=== PATIENT | female | born 1940 | race Caucasian/White ===

== ENCOUNTER 2016-09-03 10:41 | Inpatient (IN) | payer MEDICARE, OTHER ==
[2016-09-03] VITALS (21 sets, daily range): BP systolic 105–130; BP diastolic 54–63; PULSE 58–68; RESP 11–34; TEMP 97.5–97.7; O2SAT 90–99; Ht 165.1 cm; Wt 73.8 kg
[~2016-09-03] VITALS: Ht 165.1 cm; Wt 73.8 kg
[~2016-09-03 10:41] MED LIST changes: -AMLO10TA2 PO; -BENA40TA3 PO; -CARV3.12 PO; -CETI-269 PO; -POTA-81 PO; -SALINE FLUSH 10ml SYRINGE ONE; -SIMV40TA5 PO
--- NOTE | 2016-09-03 10:50 | NUR ---
Admit Pt admitted from nuclear medicine via WC accompanied by . Pt oriented to unit. Pt was able to change self into gown. Pt on RA. IVL in LW, another one started in right wrist. Orders noted and carried out. Will continue to monitor.
[2016-09-03] MEDS ORDERED: LIDOCAINE 1% (10mg/ml) 30ml SDV ONE (11:07)
[2016-09-03] MEDS ORDERED: HEPARIN 1,000units in NS 500ml BAG IV ONE (11:07)
[2016-09-03] MEDS ORDERED: BENA40TA3 PO (11:08)
[2016-09-03] MEDS ORDERED: SIMV40TA5 PO (11:08)
[2016-09-03] MEDS ORDERED: AMLO10TA2 PO (11:08)
[2016-09-03] MEDS ORDERED: POTA-81 PO (11:08)
[2016-09-03] MEDS ORDERED: NORMAL SALINE 1,000 ML IV SCH ×3 (11:30→17:00)
[2016-09-03 11:33] LABS: BASOPHILS % (AUTO) 0.3 % (0-2); EOSINOPHILS # (AUTO) 0.5 T/MM3 (0-0.5); EOSINOPHILS % (AUTO) 5.8 % (0-4); HCT - HEMATOCRIT 38.1 % (36-46); IMMATURE GRANULOCYTE # (AUTO) 0.03 T/MM3 (0.00-0.03); IMMATURE GRANULOCYTE % (AUTO) 0.3 % (0.0-0.5); LYMPHOCYTES # (AUTO) 1.4 T/MM3 (1-4.8); LYMPHOCYTES % (AUTO) 15.4 % (23-45); MEAN CORPUSCULAR HGB 30.4 UUG (26-34); MEAN CORPUSCULAR HGB CONC(MCHC 34.1 GM/DL (31-37); MEAN PLATELET VOLUME 10.8 UM3 (9.4-12.4); MONOCYTES # (AUTO) 0.9 T/MM3 (0-0.8); MONOCYTES % (AUTO) 9.5 % (0-9.0); NEUTROPHILS #(AUTO)-ABSOLUTE 6.2 T/MM3 (1.8-7.7); NEUTROPHILS % (AUTO) 68.7 % (33-66); RED BLOOD COUNT 4.28 M/MM3 (4.00-5.20)
[2016-09-03] MEDS ORDERED: MIDAZOLAM 2mg/2ml INJECTION ONE (11:39)
[2016-09-03] MEDS ORDERED: FENTANYL 100mcg/2ml INJECTION ONE (11:39)
[2016-09-03] MEDS ORDERED: VERAPAMIL 5mg/2ml INJECTION IV ONE (11:39)
--- NOTE | 2016-09-03 11:39 | NUR ---
Left to director of cath lab
[2016-09-03] MEDS ORDERED: NITROGLYCERIN 50mg/10ml INJECTION IV ONE (11:40)
[2016-09-03] MEDS ORDERED: SALINE FLUSH 10ml SYRINGE ONE (11:40)
[2016-09-03 11:42] LABS: ALBUMIN/GLOBULIN RATIO 1.3 RATIO (1.1-2.2); ALKALINE PHOSPHATASE 63 U/L (38-126); ALT (SGPT) 33 U/L (9-52); ANION GAP 8 MEQ/L (5-15); AST (SGOT) 30 U/L (14-36); BUN/CREATININE RATIO 18 RATIO (6-26); CHLORIDE 107 MEQ/L (98-107); CO2 - CARBON DIOXIDE 27 MEQ/L (22-30); CREATININE 1.6 MG/DL (0.7-1.2); GLOMERULAR FILTRATION RATE 31; GLUCOSE 102 MG/DL (65-110); POTASSIUM 4.3 MEQ/L (3.6-5); SODIUM 142 MEQ/L (134-144)
--- NOTE | 2016-09-03 12:00 | NUR ---
Notified physician of increased troponin
[2016-09-03] MEDS ORDERED: EPTIFIBATIDE 20 MG/10 ML IV ONE (13:11)
[2016-09-03] MEDS ORDERED: EPTIFIBATIDE 75 MG/100 ML IV ONE (13:11)
[2016-09-03] MEDS ORDERED: HEPARIN 20,000 units/D5W 500ml 500 ML IV SCH (14:00)
[2016-09-03] MEDS: EPTIFIBATIDE IV SCH (15:15)
[2016-09-03] MEDS: RTU SALINE IV SCH (15:15)
[2016-09-03] MEDS ORDERED: EPTIFIBATIDE IV SCH (16:02)
[2016-09-03] MEDS ORDERED: RTU SALINE IV SCH (16:02)
[2016-09-03] MEDS ORDERED: BISACODYL 5 MG E.C. TABLET PO PRN (16:15)
[2016-09-03] MEDS ORDERED: MORPHINE SULFATE 2 MG SYRINGE IV PRN (16:15)
[2016-09-03] MEDS ORDERED: NITROGLYCERIN 0.4 MG SUBLINGUAL TABLET SL SCH (16:15)
[2016-09-03] MEDS ORDERED: MORPHINE SULFATE 4 MG SYRINGE IV PRN ×3 (16:15)
[2016-09-03] MEDS ORDERED: NITROGLYCERIN 0.4 MG SUBLINGUAL TABLET SL PRN (16:15)
[2016-09-03] MEDS ORDERED: HYDROCODONE/APAP 5 mg/325 mg TABLET PO PRN (16:15)
[2016-09-03] MEDS ORDERED: PROMETHAZINE 25 MG INJECTION IV PRN (16:15)
[2016-09-03] MEDS ORDERED: METOCLOPRAMIDE 10mg/2ml INJECTION IV PRN (16:15)
[2016-09-03] MEDS ORDERED: LORAZEPAM 0.5 MG TABLET PO PRN (16:15)
[2016-09-03] MEDS ORDERED: ACETAMINOPHEN 325 MG TABLET PO PRN (16:15)
[2016-09-03] MEDS ORDERED: PRN ORDERS MC (16:15)
[2016-09-03] MEDS ORDERED: MILK OF MAGNESIA 30 ML SUSP PO PRN (16:15)
[2016-09-03] MEDS ORDERED: LORAZEPAM 2 MG/ML INJECTION IV PRN ×2 (16:15)
[2016-09-03] MEDS ORDERED: MAG-AL + SIM LIQUID 30 ML UDC PO PRN (16:15)
[2016-09-03] MEDS ORDERED: BISACODYL 10 MG SUPPOSITORY RECTALLY PRN ×2 (16:15)
[2016-09-03] MEDS ORDERED: ATROPINE 1 MG/ML VIAL IV PRN (16:15)
[2016-09-03] MEDS ORDERED: ONDANSETRON 4mg/2ml INJECTION IV PRN ×2 (16:15)
--- NOTE | 2016-09-03 16:58 | DI ---
Indication: ITS.REASON: nstemi PROCEDURE: CHEST 1 VIEW: Encounter: Initial Comparison: February 15, 2016 Findings: The lungs are stable in appearance without new focal airspace consolidation. There is no pleural effusion or pneumothorax. The heart size, pulmonary vascularity and mediastinal contours are unchanged. Prior CABG. IMPRESSION: Stable appearance of the chest without acute cardiopulmonary disease. .
--- NOTE | 2016-09-03 17:22 | NUR ---
Status Pt returned from cardiac cath tech at 1445 via bed. Pt hooked back up to monitor. VSS. Pt denied CP or any pain. trans-radial band in place on left wrist. Site asymptomatic. Integrelin infusing at 6mls/hr. NS at 125 mls/hr, and heparin at 25 mls/hr. All are compatible with each other. Pt on bedrest. Urban inserted using sterile technique. Mckayla area cleansed first with Castile soap wipes. Air is being taken out of tr band Q15M. Pt tolerating well. Will continue to monitor.
--- NOTE | 2016-09-03 17:29 | HPF ---
CHIEF COMPLAINT Abnormal stress test. HISTORY OF PRESENT ILLNESS Ms. Golden is a very pleasant 75-year-old female well known to me with coronary artery disease and prior revascularization as noted below. She was seen in our office on August 15 with intermittent chest tightness, on and off, with exertion lasting for about two to five minutes in duration. Described as 5/10 and heaviness across the chest similar to her previous angina. She has had occasional left arm pain but denies associated diaphoresis, nausea or dizziness. She has had shortness of breath and some lightheadedness at times. Patient denies any recent severe chest pain. Patient underwent stress nuclear scan today on the treadmill . Exercised for 3 minutes 30 seconds and developed 4/10 chest tightness associated with inferior ST elevation. This was transient and both angina and ST elevation spontaneously recovered as we were getting ready to take her to the emergency room. She remained angina-free, observed in recovery. I advised her on admission at this time to CCU and plan for heart catheterization. She is in full agreement with the plan. She remained free from any further angina after adequate recovery so we are going to image her in Nuclear. TEN-SYSTEM REVIEW Denies any fever, chills or night sweats. Denies any weight loss or gain. Denies sinus drainage or nosebleed. Denies sore throat. Denies wheezing, phlegm production or dyspnea. Denies palpitations or syncope. Denies abdominal pain, hematochezia, melena, dyspepsia, nausea or vomiting. Denies dysuria or hematuria. Denies lower extremity edema, orthopnea or PND. Denies syncope, headache or seizure. She did have a skin rash that she attributed to metoprolol and the drug was discontinued. She has no other complaints. PAST MEDICAL HISTORY/PAST SURGICAL HISTORY 1. Coronary artery disease, status post CABG x 2. BONDS to LAD and SVG to RCA [address] Kentrell Vicente. Normal LV function. 2. Angioplasty and 2.25 x 8 mm Integrity drug-eluting stent anastomosis of the SVG to RCA and distal RCA - Dr. Gil February 2016 while I was out. 3. Hypertension. 4. Dyslipidemia. 5. Renal insufficiency. 6. Osteoarthritis. 7. Tonsillectomy. 8. Hysterectomy. 9. Tubal ligation. 10. Breast biopsy. HOME MEDICATIONS Reviewed in EMR. ALLERGIES/DRUG INTOLERANCE Metoprolol caused rash. FAMILY HISTORY Positive for coronary artery disease, [place] and diabetes. SOCIAL HISTORY Former smoker. . Does not smoke cigarettes or drink alcohol at the present time. PHYSICAL EXAM GENERAL: Alert and oriented x 3, pleasant. Looks in no acute cardiorespiratory distress. VITAL SIGNS: Stable. Afebrile. HEENT: Normocephalic, atraumatic. PSYCHIATRIC: Mood and affect are normal. NECK: Jugular venous pressure is normal. Carotid upstrokes are equal without bruits. No palpable thyromegaly. CHEST: Perfectly clear to auscultation bilaterally. HEART: Regular rate and rhythm. Positive S4. No murmurs, rubs or clicks. Normal S1, S2. ABDOMEN: Soft, nontender, nondistended. Normoactive bowel sounds. No organomegaly or masses. EXTREMITIES: Lower extremities are without pitting edema. Peripheral pulses are intact. NEUROLOGIC: Without focal sensorimotor deficits appreciated. SKIN: Warm, pink and dry. LYMPHATIC: No palpable lymphadenopathy. No palpable thyromegaly. DIAGNOSTIC DATA Reviewed. Troponin came back elevated at 0.4. EKG normalized on the monitor. She is in sinus rhythm. Chemistry came back with elevated creatinine at 1.6. Previous creatinine was 1.1 from February 2016. TSH was normal. CBC unremarkable. Lipid profile: Cholesterol 119, LDL 57, VLDL 23.8, HDL 38. IMPRESSION 1. Abnormal stress nuclear scan. 2. Acute NSTEMI. 3. Coronary artery disease, status post CABG x 2. Prior angioplasty and stent to the distal SVG/RCA anastomosis February 2016. 4. Hypertension. 5. Dyslipidemia. 6. Renal insufficiency. DISCUSSION/PLAN 1. Proceed with urgent heart catheterization, possible PTCA and stent. Indications, alternatives, risks and benefits of the procedure were fully discussed with the patient in detail. She is in agreement to proceed. 2. IV hydration, saline bolus and drip started. 3. Holding her Melvin inhibitor, diuretics and potassium due to elevated creatinine and exposure to contrast. 4. Follow serial troponins and EKGs. 5. Echocardiogram. 6. Admit inpatient status. 7. Resume other home medications. ADDENDUM (d. 09/03/16 0729, t. 09/03/16 1753 mks) Due to elevated creatinine and NSTEMI expected length of stay is greater than two midnights. Inpatient status is warranted. [facility]
--- NOTE | 2016-09-03 17:31 | NUR ---
Order clarification Physician was paged for order clarification: Pt to be inpt May have supper tonight-cardiac diet and NPO at 0001 Nitro to be PRN only, not scheduled Changed NS to 100 mls/hr not 125 mls/hr No need to call elevated troponin. Treat pt symptoms instead of basing off troponin. Several telemetry, continuous oximetry, measure intake and outputs cancelled for duplicate orders.
[2016-09-03] MEDS: NORMAL SALINE 1,000 ML IV SCH (18:09)
[2016-09-03] MEDS: CARVEDILOL 3.125 MG TABLET PO SCH (18:09)
--- NOTE | 2016-09-03 22:00 | NUR ---
HEPARIN CONSULT (Initial): Dx: Pt has hx of CABG x 2, now presenting with NSTEMI. Post CATH, started on Heparin Drip (No Bolus) at 1000 units/hr. Baseline PTT = NA Baseline platelet count = 207 T/mm3. PTT Target Range = 50 - 75 seconds Heparin 20,000 units in D5W 500ml. PTT at 8hrs of infusion = 105.9 seconds. Will HOLD Heparin drip x 1 hour, then restart at 840 units/hr (21ml/hr). Recheck PTT in am. We will continue to monitor and make adjustments accordingly. Thank you.
[2016-09-03] MEDS: ASPIRIN *EC* 81mg TABLET PO SCH (22:10)
[2016-09-03] MEDS: TICAGRELOR 90 MG TABLET PO SCH (22:10)
[2016-09-03] MEDS: ATORVASTATIN 40 MG TABLET PO SCH (22:10)
--- NOTE | 2016-09-03 22:12 | NUR ---
Pharmacy Consult Talked with pharmacist product manufacturing professional on Heparin and other anticoags, orders received and initiated.
[2016-09-03] MEDS: HEPARIN 20,000 units/D5W 500ml 500 ML IV SCH (23:00)
[2016-09-04] VITALS (42 sets, daily range): BP systolic 111–155; BP diastolic 54–90; PULSE 56–69; RESP 8–44; TEMP 97.8–98.1; O2SAT 90–99
[2016-09-04] MEDS: RTU SALINE IV SCH (04:26)
[2016-09-04] MEDS: EPTIFIBATIDE IV SCH (04:26)
[2016-09-04] MEDS: NORMAL SALINE 1,000 ML IV SCH ×3 (04:45→23:15)
[2016-09-04 05:13] LABS: BASOPHILS % (AUTO) 0.2 % (0-2); EOSINOPHILS # (AUTO) 0.5 T/MM3 (0-0.5); HCT - HEMATOCRIT 36.6 % (36-46); HGB - HEMOGLOBIN 12.5 GM/DL (12-16); IMMATURE GRANULOCYTE # (AUTO) 0.02 T/MM3 (0.00-0.03); IMMATURE GRANULOCYTE % (AUTO) 0.2 % (0.0-0.5); LYMPHOCYTES # (AUTO) 1.3 T/MM3 (1-4.8); LYMPHOCYTES % (AUTO) 13.3 % (23-45); MEAN CORPUSCULAR HGB 30.5 UUG (26-34); MEAN CORPUSCULAR HGB CONC(MCHC 34.2 GM/DL (31-37); MEAN CORPUSCULAR VOLUME 89.3 UM3 (80-100); MEAN PLATELET VOLUME 11.1 UM3 (9.4-12.4); MONOCYTES # (AUTO) 0.8 T/MM3 (0-0.8); MONOCYTES % (AUTO) 8.1 % (0-9.0); NEUTROPHILS #(AUTO)-ABSOLUTE 7.2 T/MM3 (1.8-7.7); NEUTROPHILS % (AUTO) 73.2 % (33-66); WBC - WHITE BLOOD COUNT 9.9 T/MM3 (4.5-11.0)
[2016-09-04 05:31] LABS: ANION GAP 7 MEQ/L (5-15); BUN/CREATININE RATIO 17 RATIO (6-26); CALCIUM 8.9 MG/DL (8.4-10.2); CHLORIDE 109 MEQ/L (98-107); CO2 - CARBON DIOXIDE 23 MEQ/L (22-30); CREATININE 1.3 MG/DL (0.7-1.2); GLOMERULAR FILTRATION RATE 40; GLUCOSE 105 MG/DL (65-110); POTASSIUM 4.1 MEQ/L (3.6-5); SODIUM 139 MEQ/L (134-144)
--- NOTE | 2016-09-04 06:05 | NUR ---
PTT discussed with pharmacist, no changes at this time.
--- NOTE | 2016-09-04 06:25 | NUR ---
HEPARIN CONSULT (Recurring): PTT = 69.6 Sec. Platelet count = 205 T/mm3. Will continue Heparin Drip at present rate of 840units/hr (21 ml/hr). Will recheck PTT this afternoon to confirm steady state levels. Thank you.
[2016-09-04] MEDS ORDERED: FENTANYL 100mcg/2ml INJECTION ONE (06:36)
[2016-09-04] MEDS ORDERED: MIDAZOLAM 2mg/2ml INJECTION ONE (06:36)
[2016-09-04] MEDS ORDERED: HEPARIN 1,000units in NS 500ml BAG IV ONE (06:37)
[2016-09-04] MEDS ORDERED: SALINE FLUSH 10ml SYRINGE ONE ×2 (06:37)
[2016-09-04] MEDS ORDERED: LIDOCAINE 1% (10mg/ml) 30ml SDV ONE (06:37)
[2016-09-04] MEDS ORDERED: NITROGLYCERIN 50mg/10ml INJECTION IV ONE (07:05)
--- NOTE | 2016-09-04 08:00 | NUR ---
CATH Patient returned to room post heart cath. Oriented but drowsy. Denies discomfort. at bedside.
--- NOTE | 2016-09-04 09:00 | NUR ---
STATUS Groin site oozing slightly. Will monitor.
--- NOTE | 2016-09-04 09:15 | NUR ---
STATUS Groin site continues to ooze. mineral ore processing labourer nurse here to evaluate. Patient continues to deny discomfort.
--- NOTE | 2016-09-04 11:13 | NUR ---
CM CM IN ROOM TODAY, CONTACT INFORMATION GIVEN. PATIENTS AT BEDSIDE. PT DENIES HOME NEEDS AT THIS TIME. Addendum: 09/04/16 at 1114 by BRODIE NICHOLSON RN Amended: Links added.
--- NOTE | 2016-09-04 12:15 | CVPROF ---
ANGIOPLASTY REPORT DATE 09/04/[address] John Post PROCEDURE PTCA and stent placement of distal saphenous vein graft to the right coronary artery. MEDICATIONS GIVEN FOR PROCEDURE Versed 2 mg intravenously, fentanyl 50 mcg intravenously, heparin 5000 units intravenously. COMPLICATIONS None. METHOD The patient was brought to the cardiac catheterization laboratory. Right groin was prepped and draped in the usual sterile technique. 1% lidocaine was used for local anesthesia. A 6 Dutch sheath was inserted in right femoral artery. A 6 Dutch AL1 guide with side holes was inserted in the takeoff of the saphenous vein graft to the right coronary artery. Runthrough wire was advanced to this vessel. A 2.5 x 15 mm balloon was used for predilatation. Subsequently, a 3.0 x 3 mm drug-eluting (Resolute) stent was deployed in the distal segment of the saphenous vein graft to the coronary artery and was dilated up to 14 atmospheres (3.3 mm dilatation was obtained). Angiography was performed to the right femoral artery and AngioSeal was deployed. RESULTS Successful PTCA and stent placement of distal saphenous vein graft to the right coronary artery utilizing a drug-eluting stent with the reduction of stenosis from 98% down to 0% with DONALD-2 flow at the beginning and DONALD-3 flow at the end of the procedure. REJI
[2016-09-04] MEDS: OMEGA-3 ACID ESTERS 1 G CAPSULE PO SCH (12:26)
[2016-09-04] MEDS: CALCIUM 600mg + VIT D 400 TABLET PO SCH (12:26)
[2016-09-04] MEDS: MULTIVITAMIN + MINERAL TABLET PO SCH (12:26)
[2016-09-04] MEDS: TICAGRELOR 90 MG TABLET PO SCH ×2 (12:27→21:45)
[2016-09-04] MEDS: CARVEDILOL 3.125 MG TABLET PO SCH ×2 (14:09→21:45)
[2016-09-04] MEDS: AMLODIPINE 10 MG TABLET PO SCH (14:09)
--- NOTE | 2016-09-04 16:30 | NUR ---
ACTIVITY Up in chair. Patient moves well and is tired of being in bed. Denies discomfort except for itching from a previous allergic reaction.
--- NOTE | 2016-09-04 19:15 | NUR ---
STATUS Dr. Post in to see patient.
[2016-09-04] MEDS: ATORVASTATIN 40 MG TABLET PO SCH (21:45)
[2016-09-04] MEDS: ASPIRIN *EC* 81mg TABLET PO SCH (21:45)
[2016-09-04] MEDS: HEPARIN 20,000 units/D5W 500ml 500 ML IV SCH (22:49)
[2016-09-05] VITALS (23 sets, daily range): BP systolic 71–137; BP diastolic 32–62; PULSE 46–65; RESP 16–50; TEMP 98.1–98.2; O2SAT 91–98
[2016-09-05] MEDS: RTU SALINE IV SCH (00:35)
[2016-09-05] MEDS: EPTIFIBATIDE IV SCH (00:35)
[2016-09-05 00:42] LABS: LDL CHOLESTEROL,CALCULATED 36.4 (66-159); RISK FACTOR 2.8 RATIO (0-4.0); VLDL CHOLESTEROL 25.6 MG/DL (0-28)
--- NOTE | 2016-09-05 03:02 | NUR ---
Pt HR drops to the mid 40's while sleeping.
[2016-09-05 05:31] LABS: BASOPHILS % (AUTO) 0.2 % (0-2); EOSINOPHILS # (AUTO) 0.5 T/MM3 (0-0.5); EOSINOPHILS % (AUTO) 5.1 % (0-4); HCT - HEMATOCRIT 34.4 % (36-46); HGB - HEMOGLOBIN 11.7 GM/DL (12-16); IMMATURE GRANULOCYTE # (AUTO) 0.01 T/MM3 (0.00-0.03); IMMATURE GRANULOCYTE % (AUTO) 0.1 % (0.0-0.5); LYMPHOCYTES # (AUTO) 1.3 T/MM3 (1-4.8); LYMPHOCYTES % (AUTO) 13.4 % (23-45); MEAN CORPUSCULAR HGB 30.5 UUG (26-34); MEAN CORPUSCULAR VOLUME 89.8 UM3 (80-100); MEAN PLATELET VOLUME 10.9 UM3 (9.4-12.4); MONOCYTES % (AUTO) 10.2 % (0-9.0); NEUTROPHILS #(AUTO)-ABSOLUTE 7.1 T/MM3 (1.8-7.7); RED BLOOD COUNT 3.83 M/MM3 (4.00-5.20)
[2016-09-05 05:32] LABS: ANION GAP 10 MEQ/L (5-15); BUN/CREATININE RATIO 13 RATIO (6-26); CALCIUM 9.1 MG/DL (8.4-10.2); CHLORIDE 108 MEQ/L (98-107); CO2 - CARBON DIOXIDE 25 MEQ/L (22-30); CREATININE 1.2 MG/DL (0.7-1.2); GLOMERULAR FILTRATION RATE 44; GLUCOSE 90 MG/DL (65-110); POTASSIUM 4.3 MEQ/L (3.6-5); SODIUM 143 MEQ/L (134-144)
--- NOTE | 2016-09-05 05:32 | NUR ---
Pt slept well during the night. R. groin dressing is dry and intact. Small hematoma and bruising noted.
[2016-09-05] MEDS ORDERED: CETIRIZINE 10 MG TABLET PO ONE (08:30)
[2016-09-05] MEDS ORDERED: PredniSONE 20 MG TABLET PO ONE (08:30)
[2016-09-05] MEDS: TICAGRELOR 90 MG TABLET PO SCH (08:42)
[2016-09-05] MEDS: OMEGA-3 ACID ESTERS 1 G CAPSULE PO SCH (08:43)
[2016-09-05] MEDS: CALCIUM 600mg + VIT D 400 TABLET PO SCH (08:43)
[2016-09-05] MEDS: MULTIVITAMIN + MINERAL TABLET PO SCH (08:43)
[2016-09-05] MEDS: CARVEDILOL 3.125 MG TABLET PO SCH (08:59)
[2016-09-05] MEDS: AMLODIPINE 10 MG TABLET PO SCH (08:59)
--- NOTE | 2016-09-05 09:30 | NUR ---
STATUS Up in chair this am. Denies discomfort. Does c/o rash and feeling itchy. Relates it to prior to coming to the hospital. Dr. Post notified and orders received.
--- NOTE | 2016-09-05 12:15 | NUR ---
STATUS Patient has been up in chair all am. Amb in CCU hallway indep w/o chest pain or soa.
--- NOTE | 2016-09-05 12:44 | NUR ---
CM CM IN TO VISIT PATIENT, SHE IS UP IN CHAIR, A&O. IS AT THE BEDSIDE. PATIENT PLANS TO DISCHARGE HOME, DENIES ANY DISCHARGE NEEDS. THIS CM CONTACT INFORMATION PROVIDED.
--- NOTE | 2016-09-05 12:45 | NUR ---
CARDIAC REHAB: VISITED WITH PATIENT REGARDING CR, SHE STATES THAT SHE WAS INTERESTED IN A REHAB PROGRAM THROUGH [facility] [place]. I EXPLAINED THE DIFFERENCE BETWEEN CR, MONITORED EXERCISE AND EDUCATION. I GAVE HER PAMPHLET, ALSO GAVE GERMAN CORTES IN [facility] PROGRAM CONTACT INFORMATION SINCE PATIENT LIVES IN [place]. WILL FOLLOW UP.
[2016-09-05] MEDS ORDERED: CETI-269 PO (15:16)
[2016-09-05] MEDS ORDERED: CARV3.12 PO (15:16)
--- NOTE | 2016-09-05 15:55 | NUR ---
STATUS/DISCHARGE PT A&OX3. VSS. GROIN SITE IS BRUISING AND TENDER TO TOUCH, BANDAGE IS C/D/I. LEFT WRIST, TR BAND SITE IS BRUISING, SITE IS DRY, ADOLFO. DISCONTINUED IV, CATHETER INTACT, SITE IS ASYMPTOMATIC. REVIEWED DISCHARGE INSTRUCTIONS WITH PT AND , ANSWERING ALL QUESTIONS. PT REPORTS MAKING FOLLOW-UP APPT WITH DR. ROWLAND FOR 09/09. PT COMMITS TO PICK-UP PRESCRIPTIONS AT PREFERRED PHARMACY IN [place] PER DR. POWERS'S TRANSMITTED PRESCRIPTION ORDERS. PT IS AMBULATORY TO FRONT ENTRANCE, TOLERATING WELL. IS DRIVING FAMILY CAR.
--- NOTE | 2016-09-05 20:12 | DSF ---
HISTORY Ms. Golden is a very pleasant 76-year-old female with coronary artery disease, status post CABG x [address] Vicente in 2013, and status post 2.25 mm stent to the distal SVG February [address] Gil while I was out of town. She presented to our office with a several-week history of new-onset and worsening anginal pain. She has been compliant with her medications. She opted for initial attempt at medical therapy so Amlodipine was increased to 10 mg daily. Metoprolol 25 mg daily was added in addition to her usual cardiac meds. She presented for a stress nuclear scan for risk stratification on September 03 where she developed 4/[address] elevation although it was in inferior leads with Q-waves present. She also had reciprocal STT changes in lateral leads and precordial leads. Angina quickly spontaneously resolved in recovery without needing any nitroglycerin. When I admitted her to CCU we proceeded with heart catheterization that showed subtotal occlusion of the previous stent site to the distal SVG to the RCA. Her creatinine was 1.6. She had DONALD 2 flow. She remained free from angina or ST elevation or depression so consultation with cosmetology professor led to plans to proceed with drug-eluting stent the following morning. After adequate hydration with kidney function improved with creatinine down to 1.3, Dr. Mikel Post proceeded with placement of a 3.0 stent to SVG to RCA. The old stent was clearly undersized. Patient had a troponin elevation that peaked at 1.2 and EKG with nonspecific changes. She remained ambulatory, free from angina and exam significant only for a mild bruise in her right groin at the site of her heart catheterization. The patient was treated with intravenous heparin and Integrilin overnight prior to intervention to help dissolve a suspected thrombus component with haziness on angiogram which made the intervention safer and certainly could explain the bruising. There was no hematoma. Her left wrist site was excellent. Exam otherwise was entirely unremarkable. Chest is clear. Heart is regular rate and rhythm. No neurologic deficits. Normal vascular examination. Laboratory remained normal. Creatinine came down nicely to 1.2. She was kept off diuretic and potassium chloride. She was restarted on beta anjel at this time, carvedilol due to concern about metoprolol having caused her a rash. She continued to experience a papular rash, especially on the trunk, quite itchy. It improved after a dose of Zyrtec 10 mg and prednisone 20 mg. Her , who shares the same bed, did not have any rash or itch. Decision was to treat her with Zyrtec and have her follow with Dr. Estes about her rash next week. At the time of discharge the patient was ambulatory, free from angina and dyspnea. Hemodynamically stable. She was discharged home in good condition. Please see new medication reconciliation form for changes made. FINAL DIAGNOSES 1. Acute NSTEMI. 2. Coronary artery disease status post CABG with stenosis at previous intervention site to distal SVG to RCA. Patient received a new drug-eluting stent, 3.0 mm. 3. Renal insufficiency, resolved. DIET Heart-healthy. ACTIVITIES Increase activity as tolerated. Post heart catheterization instructions and acute TX package were provided. FOLLOWUP Outpatient cardiac rehab consultation. Follow up with Dr. Estes in one week. Appointment with myself in two weeks. REJI
--- NOTE | 2016-09-05 20:26 | ECHOF ---
ECHOCARDIOGRAM DATE OF STUDY 09/03/2016 INDICATIONS Acute WA (NSTEMI) TECHNICAL QUALITY Technically good 2D, M-mode, Doppler echocardiographic images were submitted for interpretation. FINDINGS 1. CARDIAC CHAMBERS: Left atrium is mildly enlarged, measuring 4.3 cm. All other cardiac chambers are normal in size. RV size and contractility appear normal. Prominent precordial fat pad is present. 2. LEFT VENTRICLE: Wall thickness is normal. Wall motion analysis shows posterior wall hypokinesis. Left ventricular systolic function is normal. EF 60%. Diastolic dysfunction grade 2/4 is present with E/A 18.7, E/e' 1.5. Inferolateral hypokinesis. 3. VALVES: Aortic and mitral valves exhibit mild sclerosis. Valve excursion is normal. Tricuspid valve structure and motion appear normal. Normal valve excursion. 4. DOPPLER: Mild regurgitation involving mitral, aortic and tricuspid valves, none of hemodynamic significance. 5. Systolic pulmonary artery pressure estimated at 39 mmHg which is mildly increased. 6. No evidence of pericardial effusion, intracardiac masses or demonstrable shunts. 7. IVC is not well seen. IMPRESSION 1. Left atrial enlargement. 2. Normal left ventricular systolic function. EF 60% with regional wall motion abnormalities as described above including hypokinesis of the posterior and inferoseptal wall. 3. Mild mitral regurgitation. 4. Mild tricuspid regurgitation. 5. Very mild aortic regurgitation. 6. Mild diastolic function grade 2/4. 7. Bulging of interatrial septum toward the right atrium consistent with high left atrial pressure without demonstrable shunts. No hypermobility criteria for aneurysm. MTDD
[2016-09-05] MEDS ORDERED: CETIRIZINE 10 MG TABLET PO SCH (22:00)
--- NOTE | 2016-09-06 07:53 | CVPROF ---
DATE: 09/03/2016 PROCEDURES PERFORMED 1. Transradial left and right coronary angiogram. 2. LV gram. 3. Left heart catheterization. 4. BONDS arteriogram. 5. Vein graft injection. INDICATIONS Angina pectoris associated with transient ST elevation on monitor and reciprocal ST depression. Patient had prior CABG x 2 in 2013, and prior PTCA and stent using a 2.25-mm stent to the distal saphenous vein graft to the RCA performed by Dr. Gil in February 2016 while I was out of town. Patient also had elevated troponin. NARRATIVE OF PROCEDURE The patient understood the indications, alternatives, risks and benefits of the procedure and agreed to proceed. The patient was brought to the cardiac cath laboratory. She received IV sedation using fentanyl and Versed IV. I accessed the left wrist with lidocaine 1%, about 1.5 cc, for local infiltration. I went ahead and accessed the left radial artery using modified Seldinger percutaneous technique. A 6-Persian Slender sheath was introduced. The side arm was flushed under fluoroscopic guidance. I used a SoPost catheter for all angiograms obtained in the usual fashion. The patient is currently angina-free and free from any ST-elevation or significant depression on the monitor. Her creatinine is 1.6. I consulted an interventional colleague regarding the angiographic findings and DONALD 2 flow. He advised to proceed with intervention the following morning due to her renal insufficiency and absence of ongoing angina to reduce chance of * toxicity . The procedure was well tolerated. There were no immediate complications. FINDINGS 1. HEMODYNAMICS: LV end diastolic pressure was normal. There was no pressure gradient across the aortic valve or intracavitary present. 2. CORONARY ANGIOGRAM: BONDS graft to mid LAD is widely patent with good anastomosis. LV gram shows normal wall motion, normal systolic function, normal ejection fraction. Right coronary artery is totally occluded in the mid segment with multiple areas of severe stenosis including proximally and heavy calcification throughout the mid vessel. Left main coronary artery is large and free from occlusive disease. The proximal LAD and left circumflex artery exhibit very heavy calcification. There is stenosis present in the mid LAD. Diagonal branches are free from occlusive disease. Left circumflex artery and obtuse marginal branches are free from occlusive disease. Saphenous vein graft to the RCA exhibits total lesion 98% which is hazy at the distal anastomosis main to the RCA. RPDA and RPLB branch appear of good size. DONALD 2 flow is present. IMPRESSION 1. Two-vessel coronary artery disease manifested by mid LAD 70% stenosis, mid RCA 100% stenosis. 2. BONDS to LAD is widely patent. 3. All coronaries exhibit very heavy calcification of proximal and mid portions. 4. Saphenous vein graft to the RCA exhibits subtotal occlusion, 98%, at the site of previously placed 2.25 mm stent which I believe is undersized. 5. Normal left ventricular systolic function. PLAN 1. PCI with a larger stent is planned for the morning. 2. Patient will be treated with IV heparin and IV Integrilin overnight. MTDD
== END 2016-09-05 15:55 | disposition home or self-care (01) | DRG 247 ==
LOC: CATH 10:41 → CCU 10:44 → CATH 11:23 → OBSVTOIN 16:23
PROVIDERS: ADMIT Internal Medicine Cardiovascular Disease; ATTEND Internal Medicine Cardiovascular Disease
PROC: 4A023N7 Measurement of Cardiac Sampling and Pressure, Left Heart, Percutaneous Approach (ICD-10-PCS; 2016-09-03)
PROC: B215YZZ Fluoroscopy of Left Heart using Other Contrast (ICD-10-PCS; 2016-09-03)
PROC: B212YZZ Fluoroscopy of Single Coronary Artery Bypass Graft using Other Contrast (ICD-10-PCS; 2016-09-03)
PROC: B218YZZ Fluoroscopy of Left Internal Mammary Bypass Graft using Other Contrast (ICD-10-PCS; 2016-09-03)
PROC: B211YZZ Fluoroscopy of Multiple Coronary Arteries using Other Contrast (ICD-10-PCS; 2016-09-03)
PROC: 027034Z Dilation of Coronary Artery, One Artery with Drug-eluting Intraluminal Device, Percutaneous Approach (ICD-10-PCS; principal; 2016-09-04)
DX: I21.4 Non-ST elevation (NSTEMI) myocardial infarction (principal); I25.10 Atherosclerotic heart disease of native coronary artery without angina pectoris; N28.9 Disorder of kidney and ureter, unspecified; I10 Essential (primary) hypertension; E78.5 Hyperlipidemia, unspecified; M19.91 Primary osteoarthritis, unspecified site; Z95.1 Presence of aortocoronary bypass graft
CPT/HCPCS: 36415; 80048; 80053; 80061; 84484; 85025; 85730; 93005; 93306; 93458; 93459; 96365

== ENCOUNTER → 2016-09-03 | Outpatient (CLI) | payer MEDICARE, OTHER ==
[~2016-09-03] VITALS: Ht 165.1 cm; Wt 71.8 kg
[~2016-09-03] MED LIST: AMLO10TA2 PO; AMLO1TAB36 PO; ASPI-558 PO; BENA40TA3 PO; CALC1TAB PO; CARV3.12 PO; CETI-269 PO; MULT-1198 PO; NITR0.4T SL; OMEG1CAP79 PO; POTA-81 PO; ROSU5TAB3 PO; SALINE FLUSH 10ml SYRINGE ONE; SIMV40TA5 PO; TICA90TA PO; TRIA1TAB3 PO
--- NOTE | 2016-09-05 10:02 | ESTF ---
EXERCISE TREADMILL STRESS NUCLEAR SCAN DATE 09/04/2016 INDICATION Unstable angina (subacute). The patient opted for initial medical therapy. This is for risk stratification on medical therapy. She denies any recent severe or prolonged chest pain. PROCEDURE The patient was injected with technetium-99m Myoview dose of 12.9 mCi. The patient exercised per Elder protocol for 3 minutes and 44 seconds. The second stage of Elder protocol was held due to patient's difficulty keeping up with the treadmill. She had a blood pressure of 123/56, heart rate of 57 beats per minute. Blood pressure peaked at 150/59. Heart rate went up to 135 beats per minute which is 93% of age-predicted maximum heart rate. She complained of 4/10 chest tightness at peak exercise that resolved spontaneously during recovery after receiving sublingual nitroglycerin. Rest EKG shows sinus rhythm, flat T waves in inferolateral leads, small inferolateral Q wave. During the stress test, a peak exercise ST elevation of about 1 mm is noted in anterior lead although the presence of which by itself with a Q wave may be a nonspecific finding, but the association with moderate angina along with a reciprocal ST depression in AVL and V2 and subsequently a flipped T wave in I and AVL and nonspecific ST-T changes in V4 through V6 in recovery were all consistent with ischemia. ST elevation again was back to baseline. Occasional PVCs were noted in recovery, so arrangements were made to admit the patient to CCU and proceed with heart catheterization. Risks and benefits were discussed with the patient and . They were in agreement to proceed. Stress and rest perfusion images were reviewed. The entire inferior wall extending through the inferoseptal and inferolateral segments exhibits severe perfusion defect. Appeared particularly more severe in the basal half/posterior wall. Appears to be some reversibility of a partial degree present in the rest of the inferior wall comparison on relative uptake on different myocardial segments. Gated views show normal wall motion. Stress images with lateral wall hypokinesis. Ejection fraction of 55%. Rest images show normal wall motion, normal contractility throughout and LV ejection fraction of 65%. IMPRESSION: 1. Abnormal exercise treadmill stress test associated with 4/[address] elevation (although by itself a nonspecific finding the in Q wave and Q wave leads). It was associated with a flipped T wave and reciprocal mild ST depression. Angina spontaneously resolved. Gated images show lateral wall hypokinesis with normal LV systolic function, ejection fraction. In addition, a severe fixed perfusion defect in the basal inferior wall was identified. PLAN Proceeding with heart catheterization urgently. REJI
== END ==
LOC: IMA 07:46
PROVIDERS: ATTEND Internal Medicine Cardiovascular Disease
DX: R94.39 Abnormal result of other cardiovascular function study (principal); I20.0 Unstable angina
CPT/HCPCS: 78452; 93017; A9502